=== PATIENT | female | born 1950 | race Caucasian/White ===

== ENCOUNTER 2017-01-08 10:58 | Inpatient (IN) | payer OTHER ==
[~2017-01-08] VITALS: Ht 160 cm; Wt 67.8 kg
--- NOTE | ~2017-01-08 | H ---
[facility] [place] [address] [place] [address] HISTORY AND PHYSICAL Name: BECCA NAVARRETE Room #: 211-P [facility] IN M.R.#: [id number] Admission: 01/08/17 Attend Phys: Alberta Dorman Discharge: 01/15/17 Date of : 52 Report #: [id number] THIS REPORT FOR: //name// CC: Nelson Conner DATE OF SERVICE: 01/08/2017 CHIEF COMPLAINT: This is a 66-year-old female from [place] with weakness and shortness of breath. HISTORY OF PRESENT ILLNESS: This is a patient who apparently had been in [facility] for a couple of weeks, has a large wound and a very frail situation and was placed at [place] for further evaluation and wound care and was noted to have low blood pressure, low oxygen saturation and she was sent out. The patient really did not have any specific complaints. Her past history is noteworthy for end-stage renal disease and she is on dialysis. She has a wound. She also has longstanding history of anxiety and depression, hypothyroidism. She is on midodrine for blood pressure support. She has a history of gout, hypertension. ALLERGIES: INCLUDE PENICILLIN AND SULFA. FAMILY HISTORY: Really noncontributory. SOCIAL HISTORY: She is currently at [place]. No smoking or alcohol. She smoked many years ago, apparently. REVIEW OF SYSTEMS: Otherwise, negative. She is currently on dialysis and so she is somewhat weakened. PHYSICAL EXAMINATION: GENERAL: Shows a weakened lady who is awake. She appears alert and oriented. She is in no distress. She is currently on dialysis. HEENT: Otherwise, negative. NECK: Supple, without thyromegaly or adenopathy. CHEST: Clear. CARDIOVASCULAR: Regular rate and rhythm without murmur. ABDOMEN: Soft and nontender. EXTREMITIES: Showed 1-2+ pedal edema. There was extensive psoriatic rash and wound on her right gluteal area. DATA: EKG showed nonspecific ST-T wave changes. LABORATORY PARAMETERS: Showed the dialysis findings of creatinine of 6. She has an elevated BNP and troponin. How significant these are in a dialysis [facility] [address] [place] [address] HISTORY AND PHYSICAL Name: BECCA NAVARRETE Room #: 211-P [facility] IN M.R.#: [id number] Admission: 01/08/17 Attend Phys: Alberta Dorman Discharge: 01/15/17 Date of : 52 Report #: [id number] situation is not totally clear to me, but currently she is asymptomatic. ASSESSMENT: This is a very weakened individual with end-stage renal disease who has some low blood pressure and hypoxemia. How much of this is just dialysis related is not clear to me. The possibility exists that this has ischemic heart disease, but clinically she is not showing evidence of this and an electrocardiogram does not support an acute current of injury. Whether there is infectious complications here is certainly a possibility as well. We will do the best we can in what is a very difficult situation in a very frail lady. <ELECTRONICALLY SIGNED> By: Nelson Hollis MD 01/20/17 1734 0818 0923 Nelson Hollis MD /nt
--- NOTE | ~2017-01-08 | EKG ---
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
--- NOTE | ~2017-01-08 | HC ---
[facility] [place] [address] [place] [address] CONSULTATION Name: BECCA NAVARRETE Room #: [address] [place] [address] IN M.R.#: [id number] Admission: 01/08/17 Attend Phys: Alberta Dorman Discharge: Date of : 52 Report #: [id number] THIS REPORT FOR: //name// CC: Nelson Conner INFECTIOUS DISEASE CONSULTATION REASON FOR CONSULTATION: I was asked to evaluate concerning recurrent C. difficile colitis and lumbar spine wound in the setting of end-stage renal disease and psoriasis. HISTORY OF PRESENT ILLNESS: The patient was admitted from [place] for hypotension and lethargy. She does have end-stage renal disease and is on dialysis 3 days a week. She has extensive psoriasis. She has had a nonhealing wound to her lumbar spine. She has a history of C. difficile colitis, which has been treated several times in the past. Following her hospitalization, she was placed on vancomycin and meropenem. She has remained afebrile. She is on oxygen at 2 liters per nasal cannula. There has been no cough or sputum production. She has been incontinent of soft to loose stool. Pain has been under reasonable control. ALLERGIES: PENICILLIN AND SULFA. MEDICATIONS: As noted on her MAR including vancomycin and meropenem. FAMILY HISTORY: Noncontributory. SOCIAL HISTORY: She is a past smoker, no significant alcohol intake. PAST MEDICAL HISTORY: Psoriasis, end-stage renal disease, hypertension, chronic back wound and C. difficile colitis. REVIEW OF SYSTEMS: Noted above. PHYSICAL EXAMINATION: VITAL SIGNS: Afebrile and hemodynamically stable. GENERAL: She was alert and cooperative, very weak. SKIN: She had find intention tremor. Increased muscle tone throughout. Diffuse rash consistent with psoriasis, fairly large lower thoracic upper lumbar back wound with good granulomas and tissue. No surrounding cellulitis. Serous drainage. HEENT: Unremarkable. CHEST: Clear. HEART: Regular, without murmur. ABDOMEN: Soft and nontender. She was incontinent of soft stool. [facility] [address] [place] [address] CONSULTATION Name: BECCA NAVARRETE Room #: [address] [place] [address] IN M.R.#: [id number] Admission: 01/08/17 Attend Phys: Alberta Dorman Discharge: Date of : 52 Report #: [id number] LABORATORY STUDIES: Sodium 136, potassium 4.9, bicarbonate 28, creatinine 5.1, alkaline and phosphatase 266. Liver function test normal. BNP greater than 35,000. Hemoglobin 10, white count 8, and platelet count 244,000. Stool for C. diff was positive. Blood cultures were negative. Chest x-ray showed right basilar atelectasis. IMPRESSION AND PLAN: This is a 66-year-old with end-stage renal disease, advanced psoriasis, nonhealing wound to her lower thoracic and upper lumbar spine region. Unclear if there is underlying bony infection in this region, more reports will be called for Clostridium difficile colitis. Recommend discontinuation of the meropenem, continuing oral vancomycin, obtain records from [facility] regarding her back, follow sedimentation rate and plain x-rays. Treat psoriasis per Dermatology recommendations. <ELECTRONICALLY SIGNED> By: Axel Hollis MD 01/13/17 0847 1822 0047 Axel Hollis MD /nt
--- NOTE | ~2017-01-08 | HC ---
[facility] [place] [address] [place] [address] CONSULTATION Name: BECCA NAVARRETE Room #: 211- ADM IN M.R.#: [id number] Admission: 01/08/17 Attend Phys: Alberta Dorman Discharge: Date of : 52 Report #: [id number] THIS REPORT FOR: //name// CC: Nelson Conner DATE OF SERVICE: 01/09/2017 REASON FOR CONSULTATION: End-stage renal disease. HISTORY OF PRESENT ILLNESS: This is the patient's first [facility] hospitalization. She was sent to the emergency room from [place] where she developed decreasing level of consciousness and had some hypoxia noted based on O2 saturation in the 80s. She has a longstanding history of diffuse psoriasis, which has been refractory to therapy. She tells me that she has been on dialysis for approximately a year and a half, initially at [place], but more recently at [place]. She denies a chronic history of lung difficulties. She does have a longstanding history of hypertension. PAST MEDICAL HISTORY: Remarkable for end-stage renal disease, psoriasis and hypertension. MEDICATIONS: On admission to the hospital include buspirone, Coumadin, Neurontin, Synthroid, Lexapro, magnesium oxide, melatonin, midodrine, Remeron, OxyContin, Mysoline, Megha-Gui, Aristocort, Tylenol, Uloric, and Xanax. ALLERGIES: Reported TO PENICILLIN AND SULFA. PERSONAL AND SOCIAL HISTORY: The patient is a reformed smoker, having quit many years ago. She does not use alcohol or have any history of substance abuse. REVIEW OF SYSTEMS: Remarkable for the absence of edema. She denies productive cough, hemoptysis, chest pain, palpitations, nausea, vomiting, or diarrhea. PHYSICAL EXAMINATION: GENERAL: Reveals a well developed, chronically ill-appearing female, in no acute distress. VITAL SIGNS: Blood pressure 118/42, temperature 36.6, pulse 50, and respirations 16. SKIN: Remarkable for diffuse psoriatic changes over the extremities, trunk, and even the face. There is no gross edema, but volume status is difficult to patrol judge based upon her diffuse and significant skin changes. HEENT: The head is normocephalic and atraumatic. The sclerae are white and the conjunctivae are not injected. The pharynx is benign. NECK: Supple. LUNGS: Wright reveal good inspiratory efforts with a nonfocal examination. [address] [address] CONSULTATION Name: BECCA NAVARRETE Room #: 211-P [facility] IN .R.#: [id number] Admission: 01/08/17 Attend Phys: Alberta Dorman Discharge: Date of : 52 Report #: [id number] There is no evidence of consolidation. CARDIAC: Reveals a regular rate and rhythm without rub. ABDOMEN: Soft and nontender. NEUROLOGIC: Reveals the patient to be alert and cooperative with a nonfocal exam. DIAGNOSTIC STUDIES: Available at this time, sodium 134, potassium 5.2, chloride 97, CO2 of 26, BUN 59, creatinine 6.5, and glucose 90. White blood cell count 9200, hemoglobin 11.3, hematocrit 35.5, and platelet count 265,000. ASSESSMENT: 1. End-stage renal disease, on maintenance hemodialysis. The patient was due to have received her dialysis treatment yesterday, but it is ongoing at this present time. Her blood pressure fell early and required reduction in her UF goal. 2. Diffuse psoriasis. 3. Hypoxia with no evidence of pulmonary infiltrate on chest x-ray. 4. Anemia of chronic kidney disease. 5. Chronic malnutrition. PLAN: The patient will receive her dialysis treatment and we will monitor her volume status closely as well as her blood pressure. I have started a renal vitamin and adjusted her gabapentin and midodrine dosage accordingly. Please see orders. Critical care time 45 minutes. <ELECTRONICALLY SIGNED> By: Rd Tafoya MD 01/11/[address] MD /nt
--- NOTE | ~2017-01-08 | D ---
[facility] [place] [address] [place] [address] DISCHARGE SUMMARY Name: BECCA NAVARRETE Room #: 211-P ADM IN M.R.#: [id number] Admission: 01/08/17 Attend Phys: Alberta Dorman Discharge: Date of : 52 Report #: [id number] THIS REPORT FOR: //name// CC: Nelson Conner FINAL DIAGNOSES: 1. Lumbar diskitis. 2. Right psoas abscess. 3. Recurrent Clostridium difficile colitis. 4. End-stage renal disease. 5. Psoriasis. 6. Anemia of chronic disease. 7. Paroxysmal atrial fibrillation. HOSPITAL COURSE: The patient was admitted from the long term and evaluated for infection. Ultimately, she was found to have a persistent wound of the lumbar spine and persistent osteomyelitis and diskitis of the lumbar spine. This had been previously diagnosed and treated at an outlying hospital in LTAC facility. There were signs of psoas abscess and she underwent CT with a needle drainage and placement of a JHOAN drain. Infectious Disease monitored during her stay and ordered antibiotics. Renal managed dialysis. Dr. Kearns kindly saw her in regards to the psoriasis and recommended continuing triamcinolone twice a day for her skin, otherwise she remained medically stable. DISPOSITION: She will be transferred to [facility] LTAC facility under the care of Dr. Leodan Hollis. Dr. Axel Hollis will follow her stay there. I signed her transfer medications and orders and she will continue hemodialysis. <ELECTRONICALLY SIGNED> By: Mckay Conner MD 01/15/17 1433 1306 1346 Mckay Conner MD /nt
[2017-01-08 11:00] VITALS: BP 120/43
[2017-01-08 11:50] LABS: ABSOLUTE NEUTROPHILS 6.2 thou/uL (1.4-8.2); BASOPHILS 0.9 % (0.0-2.0); EOSINOPHILS 4.1 % (0.0-3.0); HEMATOCRIT 35.5 % (37.0-47.0); HEMOGLOBIN 11.3 gm/dL (12.0-15.0); LYMPHOCYTES 17.6 % (24.0-44.0); MANUAL DIFF NO; MCH 26.3 pg (26.0-34.0); MCHC 31.7 g/dL (28.0-37.0); MCV 83.1 fL (80.0-100.0); MONOCYTES 9.8 % (1.0-8.0); PLATELET COUNT 265 thou/uL (150-400); POLYS 67.6 % (36.0-66.0); RBC 4.27 mil/uL (4.20-5.00); RDW 16.3 % (10.5-14.5); WBC 9.2 thou/uL (4.0-11.0)
[2017-01-08 11:51] LABS: ANION GAP 7 mmol/L (7-16); BUN 49 mg/dL (7-18); CALCIUM 8.8 mg/dL (8.5-10.1); CHLORIDE 98 mmol/L (98-107); CO2 29 mmol/L (21-32); GLUCOSE 101 mg/dL (70-99); POTASSIUM 5.1 mmol/L (3.5-5.1); SODIUM 134 mmol/L (136-145)
[2017-01-08 12:02] LABS: ALBUMIN 2.3 g/dL (3.4-5.0); ALKALINE PHOSPHATASE 266 U/L (46-116); SGOT 42 U/L (15-37); SGPT 49 U/L (30-65); TOTAL BILIRUBIN 0.3 mg/dL (<0.1-1.0); TOTAL PROTEIN 7.1 g/dL (6.4-8.2)
[2017-01-08 12:05] LABS: TROPONIN-I 1.65 ng/mL (<0.04-0.07)
[2017-01-08] MEDS ORDERED: HYDRALAZINE 2525 MG PO (12:18)
[2017-01-08] MEDS ORDERED: GABAPENTIN 100100 MG PO ×2 (12:19→13:42)
[2017-01-08] MEDS ORDERED: LEVEMIR SUBQ (12:19)
[2017-01-08] MEDS ORDERED: NORVASC5 MG PO (12:20)
[2017-01-08] MEDS ORDERED: PEPCID20 MG PO (12:20)
[2017-01-08] MEDS ORDERED: COLACE100 MG PO (12:21)
[2017-01-08] MEDS ORDERED: MIRALAX255 GM PO (12:21)
[2017-01-08] MEDS ORDERED: HUMALOG100 UNIT/1 SUBQ (12:22)
[2017-01-08] MEDS ORDERED: IRON325 PO (12:22)
[2017-01-08] MEDS ORDERED: MELATONIN3 MG PO ×2 (12:22→13:44)
[2017-01-08] MEDS ORDERED: TUMS PO (12:23)
[2017-01-08] MEDS ORDERED: REFRESH CLASSI1 EACH OP (12:23)
[2017-01-08] MEDS ORDERED: SYSTANE 0.3-0.1 EACH OP (12:24)
[2017-01-08] MEDS ORDERED: VITAMINC500 PO (12:24)
[2017-01-08] MEDS ORDERED: NORCO 10-325 T1 EACH PO (12:24)
[2017-01-08] MEDS ORDERED: TYLENOL325 MG PO ×2 (12:25→13:48)
[2017-01-08] MEDS ORDERED: VITAMIN D2000 UNIT PO (12:26)
[2017-01-08] MEDS ORDERED: LEXAPRO20 MG PO ×2 (12:26→13:43)
[2017-01-08] MEDS ORDERED: ALLOPURINOL 10100 M1 PO (12:26)
[2017-01-08] MEDS ORDERED: ASPIR 8181 MG PO (12:26)
[2017-01-08] MEDS ORDERED: FOLIC ACID1 MG PO (12:26)
[2017-01-08] MEDS ORDERED: PATADAY2.5 ML OP (12:27)
[2017-01-08 12:28] LABS: NT-PRO BRAIN NAT PEPTIDE > 35000 pg/mL (<300)
[2017-01-08 12:57] LABS: INR 1.3; PROTIME 13.2 Seconds (9.3-11.4)
[2017-01-08] MEDS ORDERED: BUSPIRONE HCL10 MG PO (13:40)
[2017-01-08] MEDS ORDERED: COUMADIN 5 MG TA5 M1 PO (13:42)
[2017-01-08] MEDS ORDERED: LEVOTHYROXIN0.075 MG PO (13:42)
[2017-01-08] MEDS ORDERED: MAGOX 400400 MG PO (13:43)
[2017-01-08] MEDS ORDERED: MIDODRINE HCL 55 M1 PO (13:44)
[2017-01-08] MEDS ORDERED: REMERON15 MG PO (13:45)
[2017-01-08] MEDS ORDERED: OXYCONTIN10 M1 PO (13:46)
[2017-01-08] MEDS ORDERED: RENA-VITE TABL0.8 MG PO (13:47)
[2017-01-08] MEDS ORDERED: MYSOLINE50 MG PO (13:47)
[2017-01-08] MEDS ORDERED: TRIAMCINOLONE A80 G2 TOP (13:48)
[2017-01-08] MEDS ORDERED: ULORIC40 MG PO (13:48)
[2017-01-08] MEDS ORDERED: XANAX 0.25 MG0.25 MG PO (13:49)
[2017-01-08 15:00] VITALS: BP 112/40
[2017-01-08 15:10] VITALS: BP 123/32
[2017-01-08 19:48] VITALS: BP 113/33
[2017-01-08 23:39] VITALS: BP 108/29
[2017-01-09] VITALS (7 sets, daily range): BP systolic 99–147; BP diastolic 22–71
[2017-01-09 04:17] LABS: HEMATOCRIT 35.6 % (37.0-47.0); MCH 26.1 pg (26.0-34.0); MCV 84.3 fL (80.0-100.0); RBC 4.22 mil/uL (4.20-5.00); RDW 16.4 % (10.5-14.5); WBC 11.3 thou/uL (4.0-11.0)
[2017-01-09 04:46] LABS: ALBUMIN 2.2 g/dL (3.4-5.0); CALCIUM 8.6 mg/dL (8.5-10.1); CREATININE 6.5 mg/dL (0.6-1.3); PHOSPHORUS 5.9 mg/dL (2.5-4.9); POTASSIUM 5.2 mmol/L (3.5-5.1)
[2017-01-09 09:50] LABS: TROPONIN-I 1.44 ng/mL (<0.04-0.07)
[2017-01-09] MEDS ORDERED: NEURONTIN 400400 M1 PO (11:35)
[2017-01-09] MEDS ORDERED: LEXAPRO20 MG PO (11:37)
[2017-01-09] MEDS ORDERED: OXYCODONE HCL10 MG PO (11:38)
[2017-01-09] MEDS ORDERED: MELATONIN5 M1 PO (11:40)
[2017-01-09] MEDS ORDERED: MAGNESIUM OXID400 MG PO (11:40)
[2017-01-09] MEDS ORDERED: NEPHROCAPS SOFT1 CAP PO (11:41)
[2017-01-09] MEDS ORDERED: PRIMIDONE50 MG PO (11:41)
[2017-01-09] MEDS ORDERED: ULORIC40 MG PO (11:42)
[2017-01-09] MEDS ORDERED: XANAX 0.25 MG0.25 MG PO (11:42)
[2017-01-09] MEDS ORDERED: VENOFER100 MG/51 IV PUSH (11:43)
[2017-01-09] MEDS ORDERED: MIDODRINE HCL10 MG PO (11:43)
[2017-01-09] MEDS ORDERED: NYAMYC15 GM TOP (11:44)
[2017-01-10 03:10] VITALS: BP 119/71
[2017-01-10 05:02] LABS: HEMATOCRIT 32.3 % (37.0-47.0); HEMOGLOBIN 10.2 gm/dL (12.0-15.0); MCH 26.3 pg (26.0-34.0); MCHC 31.4 g/dL (28.0-37.0); MCV 83.7 fL (80.0-100.0); RBC 3.86 mil/uL (4.20-5.00); RDW 16.1 % (10.5-14.5); WBC 8.3 thou/uL (4.0-11.0)
[2017-01-10 05:20] LABS: ALBUMIN 2.1 g/dL (3.4-5.0); CALCIUM 8.5 mg/dL (8.5-10.1); PHOSPHORUS 4.1 mg/dL (2.5-4.9); POTASSIUM 4.5 mmol/L (3.5-5.1)
[2017-01-10 05:21] LABS: CREATININE 4.2 mg/dL (0.6-1.3)
[2017-01-10 07:05] VITALS: BP 97/30
[2017-01-10 08:15] VITALS: BP 100/38
[2017-01-10 11:00] VITALS: BP 93/29
[2017-01-10 16:45] VITALS: BP 113/36
[2017-01-10 20:20] VITALS: BP 107/27
[2017-01-11 03:30] VITALS: BP 107/28
[2017-01-11 03:51] LABS: HEMATOCRIT 31.9 % (37.0-47.0); MCH 26.3 pg (26.0-34.0); MCHC 31.3 g/dL (28.0-37.0); RBC 3.8 mil/uL (4.20-5.00); RDW 15.9 % (10.5-14.5); WBC 8.1 thou/uL (4.0-11.0)
[2017-01-11 04:17] LABS: CALCIUM 8.7 mg/dL (8.5-10.1); CREATININE 5.1 mg/dL (0.6-1.3); PHOSPHORUS 4.9 mg/dL (2.5-4.9); POTASSIUM 4.9 mmol/L (3.5-5.1)
[2017-01-11 07:20] VITALS: BP 97/26
[2017-01-11 11:05] VITALS: BP 134/61
[2017-01-11 15:35] VITALS: BP 169/66
[2017-01-12 03:51] LABS: INR 1.4
[2017-01-12 04:26] VITALS: BP 117/43
[2017-01-12 13:00] VITALS: BP 120/68
[2017-01-12 17:00] VITALS: BP 122/64
[2017-01-13 03:42] LABS: HEMATOCRIT 34.1 % (37.0-47.0); HEMOGLOBIN 10.7 gm/dL (12.0-15.0); MCHC 31.5 g/dL (28.0-37.0); MCV 82.5 fL (80.0-100.0); RBC 4.14 mil/uL (4.20-5.00); RDW 16.1 % (10.5-14.5); WBC 8.6 thou/uL (4.0-11.0)
[2017-01-13 03:49] LABS: INR 1.3; PROTIME 13.8 Seconds (9.3-11.4)
[2017-01-13 03:56] LABS: ALBUMIN 2.1 g/dL (3.4-5.0); CALCIUM 9.1 mg/dL (8.5-10.1); CREATININE 4.8 mg/dL (0.6-1.3); PHOSPHORUS 4.2 mg/dL (2.5-4.9); POTASSIUM 5.1 mmol/L (3.5-5.1)
[2017-01-13 04:31] VITALS: BP 140/64
[2017-01-13 08:55] VITALS: BP 141/45
[2017-01-13 14:00] VITALS: BP 139/62
[2017-01-13 19:07] VITALS: BP 145/50
[2017-01-14] VITALS (12 sets, daily range): BP systolic 118–153; BP diastolic 40–76
[2017-01-15 03:20] LABS: HEMATOCRIT 32.4 % (37.0-47.0); HEMOGLOBIN 10.4 gm/dL (12.0-15.0); MCH 26.4 pg (26.0-34.0); MCHC 32.1 g/dL (28.0-37.0); MCV 82.2 fL (80.0-100.0); RBC 3.94 mil/uL (4.20-5.00); RDW 15.8 % (10.5-14.5); WBC 8.2 thou/uL (4.0-11.0)
[2017-01-15 03:47] LABS: ALBUMIN 2.2 g/dL (3.4-5.0); CALCIUM 8.7 mg/dL (8.5-10.1); CREATININE 4.4 mg/dL (0.6-1.3); POTASSIUM 5.1 mmol/L (3.5-5.1)
[2017-01-15 03:57] VITALS: BP 120/41
[2017-01-15 07:46] VITALS: BP 138/42
[2017-01-15] MEDS ORDERED: VANCOMYCIN100 MG/ML PO (09:27)
[2017-01-15] MEDS ORDERED: MERREM1 GM IVPB (09:28)
[2017-01-15] MEDS ORDERED: VANCO1GM IV (09:29)
[2017-01-15] MEDS ORDERED: NEURONTIN 300300 M1 PO (09:30)
[2017-01-15] MEDS ORDERED: MIDODRINE HCL 55 M1 PO (09:30)
[2017-01-15 11:06] VITALS: BP 126/41
[2017-01-15 17:07] VITALS: BP 131/59
[2017-01-15 19:27] VITALS: BP 137/54
== END 2017-01-15 21:15 | DRG 981 ==
LOC: ER 10:58 → 2N 13:04 → EROBS 13:04 → 2N 14:53
PROVIDERS: Internal Medicine; Internal Medicine Geriatric Medicine; Internal Medicine Nephrology; Nurse Practitioner Family
PROC: 5A1D60Z (ICD-10-PCS; principal; 2017-01-09)
PROC: 0K9N3ZZ Drainage of Right Hip Muscle, Percutaneous Approach (ICD-10-PCS; 2017-01-12)
PROC: 0K9N3ZX Drainage of Right Hip Muscle, Percutaneous Approach, Diagnostic (ICD-10-PCS; 2017-01-12)
DX: K68.12 Psoas muscle abscess (principal); N18.6 End stage renal disease; A04.7 Enterocolitis due to Clostridium difficile; I12.0 Hypertensive chronic kidney disease with stage 5 chronic kidney disease or end stage renal disease; E46 Unspecified protein-calorie malnutrition; D63.8 Anemia in other chronic diseases classified elsewhere; L40.9 Psoriasis, unspecified; M46.46 Discitis, unspecified, lumbar region; I48.0 Paroxysmal atrial fibrillation; R09.02 Hypoxemia; E03.9 Hypothyroidism, unspecified; F39 Unspecified mood [affective] disorder; Z68.26 Body mass index [BMI] 26.0-26.9, adult; Z88.0 Allergy status to penicillin; Z88.2 Allergy status to sulfonamides; Z87.891 Personal history of nicotine dependence; Z79.899 Other long term (current) drug therapy; Z79.82 Long term (current) use of aspirin; Z79.01 Long term (current) use of anticoagulants; Z99.2 Dependence on renal dialysis
CPT/HCPCS: 10081; 32100